=== PATIENT | female | born 1990 | race Caucasian/White ===

== ENCOUNTER 2016-10-31 15:18 | Emergency (ER) | payer OTHER ==
[~2016-10-31] VITALS: Ht 160 cm; Wt 86.4 kg
[2016-10-31 15:24] VITALS: BP 126/83; PULSE 117; RESP 16; TEMP 99; O2SAT 96
[2016-10-31] MEDS ORDERED: SODIUM CHLOR 0.9% 1000 ML INJ 1,000 ML IV SCH (15:37)
--- NOTE | 2016-10-31 15:42 | PD ---
HPI Chief Complaint: Dizziness Time Seen by Provider: 15:36 Travel History International Travel<30 days: No Contact w/Intl Traveler<30days: No Traveled to known affect area: No History of Present Illness HPI Healthy 26-year-old female here with complaint of nausea vomiting diarrhea and dizziness. Patient states that she went to a fair yesterday where she ate pulled pork. At approximately midnight she began having nausea and vomiting which was intractable until approximately 7 AM. Since, the vomiting has resolved and she has had associated diarrhea. Mild diffuse abdominal cramping. No significant pain. Patient notes lightheadedness, presyncopal symptoms. PFSH Past Medical History Medical History: Denies Significant Hx ?: Not LMP: 10/30/16 Past Surgical History Tonsillectomy: Yes Social History Alcohol Use: No Tobacco Use: No Substance Use: No Allergies-Medications (Allergen,Severity, Reaction): Coded Allergies: No Known Allergies (Verified , 10/31/16) Reported Meds & Prescriptions Reported Meds & Active Scripts Active Review of Systems Except as stated in HPI: all other systems reviewed are Neg Physical Exam Narrative GENERAL: Well-appearing female in no acute distress SKIN: Warm and dry. HEAD: Normocephalic. EYES: No scleral icterus. No injection or drainage. ENT: Mucous membranes pink and moist. NECK: Supple CARDIOVASCULAR: Tachycardic with heart rates in the 110s, regular rhythm. No murmur appreciated. RESPIRATORY: No accessory muscle use. Clear to auscultation. Breath sounds equal bilaterally. GASTROINTESTINAL: Abdomen soft, non-tender, nondistended. MUSCULOSKELETAL: Normal gait NEUROLOGICAL: Awake and alert. Normal speech. PSYCHIATRIC: Appropriate mood and affect; insight and judgment normal. Data Data Last Documented VS Vital Signs Date Time Temp Pulse Resp B/P Pulse Ox O2 Delivery O2 Flow Rate FiO2 10/31/16 15:45 97 Room Air 10/31/16 15:24 99.0 117 16 126/83 Orders Complete Blood Count With Diff (10/31/16 15:37) Comprehensive Metabolic Panel (10/31/16 15:37) Lipase (10/31/16 15:37) Iv Access Insert/Monitor (10/31/16 15:37) Ecg Monitoring (10/31/16 15:37) Oximetry (10/31/16 15:37) Ondansetron Inj (Zofran Inj) (10/31/16 15:45) Sodium Chlor 0.9% 1000 Ml Inj (Ns 1000 M (10/31/16 15:37) Sodium Chloride 0.9% Flush (Ns Flush) (10/31/16 15:45) Electrocardiogram (10/31/16 15:37) Ed Urine Pregnancytest Poc (10/31/16 15:40) MDM Medical Decision Making Medical Screen Exam Complete: Yes Emergency Medical Condition: Yes Medical Record Reviewed: Yes Differential Diagnosis 26-year-old female here with complaint of nausea vomiting diarrhea since midnight with lightheadedness and presyncope. Differential includes food poisoning, gastritis, gastroenteritis, pancreatitis, hepatobiliary pathology, symptomatic anemia, electrolyte abnormality, arrhythmia, , and less likely peritoneal pathology given benign abdominal examination. Narrative Course Patient placed on monitor, IV established and blood obtained. Given 1 L normal saline bolus, 4 mg Zofran. Twelve-lead EKG showed sinus tachycardia without notable ST abnormalities, normal intervals. CBC, CMP, lipase and urine test were ordered. Results remain pending at the time this dictation. Patient signed out to oncoming provider waiting results of same for hopeful disposition home. Lizet Bahena MD Oct 31, 2016 15:42
[2016-10-31 15:45] VITALS: O2SAT 97
[2016-10-31] MEDS ORDERED: SODIUM CHLORIDE 0.9% FLUSH 5 ML FLUSH IVF PRN (15:45)
[2016-10-31] MEDS ORDERED: ONDANSETRON HCL 4 MG/2 ML VIAL IVP ONE (15:45)
[2016-10-31 16:20] LABS: AUTOMATED NEUTROPHIL # 10.7 TH/MM3 (1.8-7.7); BASOPHIL # 0.1 TH/MM3 (0-0.2); BASOPHIL % 1.2 % (0.0-2.0); EOSINOPHIL % 0.1 % (0.0-4.0); HEMO FLAGS DIFF FINAL; LYMPH % 6.2 % (9.0-44.0); LYMPHOCYTE # 0.7 TH/MM3 (1.0-4.8); MEAN CELL VOLUME 84.9 FL (80.0-100.0); MEAN CORPUSCULAR HEMOGLOBIN 28.6 PG (27.0-34.0); MEAN CORPUSCULAR HGB CONC 33.7 % (32.0-36.0); MONO % 3.5 % (0.0-8.0); PLATELET COUNT 280 TH/MM3 (150-450); RED BLOOD COUNT 4.96 MIL/MM3 (4.00-5.30); RED CELL DISTRIBUTION WIDTH 11.8 % (11.6-17.2); WHITE BLOOD COUNT 11.9 TH/MM3 (4.0-11.0)
[2016-10-31 16:28] LABS: CHLORIDE 107 MEQ/L (98-107); POTASSIUM 3.7 MEQ/L (3.5-5.1); SODIUM (NA) 141 MEQ/L (136-145)
[2016-10-31 16:32] LABS: ANION GAP 7 MEQ/L (5-15); BICARBONATE 27.4 MEQ/L (21.0-32.0); BLOOD UREA NITROGEN 12 MG/DL (7-18)
[2016-10-31 16:35] LABS: ALT (GPT) 32 U/L (10-53); AST (GOT) 16 U/L (15-37); GLOMERULAR FILTRATION RATE 103 ML/MIN (>89)
[2016-10-31 16:36] LABS: TOTAL BILIRUBIN ADULT 0.6 MG/DL (0.2-1.0)
[2016-10-31 16:38] LABS: ALKALINE PHOSPHATASE 73 U/L (45-117)
[2016-10-31] MEDS ORDERED: KETOROLAC TROMETHAMINE 30 MG/ML (IVP) VIAL IV PUSH ONE (17:15)
[2016-10-31] MEDS ORDERED: SODIUM CHLOR 0.9% 1000 ML INJ 1,000 ML IV ONE (17:15)
[2016-10-31] MEDS ORDERED: ZOFR4TAB3 SL (17:42)
--- NOTE | 2016-10-31 17:49 | PD ---
Physical Exam Date Seen by Provider: Oct 31, 2016 Time Seen by Provider: 17:47 Narrative 26-year-old female had presented with complaint of vomiting and diarrhea tonight started after that. Her lab work has been normal. She has been given IV fluids. She is complaining of some headache. Her neck is supple pupils round. She is given some Toradol with improvement. She is stable for discharge she'll be released with prescription for Zofran Data Data Last Documented VS Vital Signs Date Time Temp Pulse Resp B/P Pulse Ox O2 Delivery O2 Flow Rate FiO2 10/31/16 15:45 97 Room Air 10/31/16 15:24 99.0 117 16 126/83 Orders Complete Blood Count With Diff (10/31/16 15:37) Comprehensive Metabolic Panel (10/31/16 15:37) Lipase (10/31/16 15:37) Iv Access Insert/Monitor (10/31/16 15:37) Ecg Monitoring (10/31/16 15:37) Oximetry (10/31/16 15:37) Ondansetron Inj (Zofran Inj) (10/31/16 15:45) Sodium Chlor 0.9% 1000 Ml Inj (Ns 1000 M (10/31/16 15:37) Sodium Chloride 0.9% Flush (Ns Flush) (10/31/16 15:45) Electrocardiogram (10/31/16 15:37) Ed Urine Pregnancytest Poc (10/31/16 15:40) Sodium Chlor 0.9% 1000 Ml Inj (Ns 1000 M (10/31/16 17:15) Ketorolac Inj (Toradol Inj) (10/31/16 17:15) Labs Laboratory Tests Test 10/31/16 16:09 White Blood Count 11.9 TH/MM3 Red Blood Count 4.96 MIL/MM3 Hemoglobin 14.2 GM/DL Hematocrit 42.0 % Mean Corpuscular Volume 84.9 FL Mean Corpuscular Hemoglobin 28.6 PG Mean Corpuscular Hemoglobin 33.7 % Concent Red Cell Distribution Width 11.8 % Platelet Count 280 TH/MM3 Mean Platelet Volume 9.4 FL Neutrophils (%) (Auto) 89.0 % Lymphocytes (%) (Auto) 6.2 % Monocytes (%) (Auto) 3.5 % Eosinophils (%) (Auto) 0.1 % Basophils (%) (Auto) 1.2 % Neutrophils # (Auto) 10.7 TH/MM3 Lymphocytes # (Auto) 0.7 TH/MM3 Monocytes # (Auto) 0.4 TH/MM3 Eosinophils # (Auto) 0.0 TH/MM3 Basophils # (Auto) 0.1 TH/MM3 CBC Comment DIFF FINAL Differential Comment Sodium Level 141 MEQ/L Potassium Level 3.7 MEQ/L Chloride Level 107 MEQ/L Carbon Dioxide Level 27.4 MEQ/L Anion Gap 7 MEQ/L Blood Urea Nitrogen 12 MG/DL Creatinine 0.70 MG/DL Estimat Glomerular Filtration 103 ML/MIN Rate Random Glucose 90 MG/DL Calcium Level 8.4 MG/DL Total Bilirubin 0.6 MG/DL Aspartate Amino Transf 16 U/L (AST/SGOT) Alanine Aminotransferase 32 U/L (ALT/SGPT) Alkaline Phosphatase 73 U/L Total Protein 7.2 GM/DL Albumin 3.5 GM/DL Lipase 97 U/L [facility] Medical Record Reviewed: No Supervised Visit with [facility]ORCAS: No Differential Diagnosis Differential includes gastroenteritis, food poisoning, dehydration Narrative Course The patient has been given symptomatic treatment with improvement. She is stable for discharge Diagnosis Primary Impression: Gastroenteritis Scripts Ondansetron Odt (Zofran Odt)4 Mg Tab4 Mg SL Q6HR PRN (Nausea/Vomiting) #7 TAB Ref 0 Prov:Kenny Faith MD 10/31/16 Disposition: 01 DISCHARGE HOME Condition: Stable Kenny Faith MD Oct 31, 2016 17:49
[2016-10-31 18:10] VITALS: RESP 18
[2016-10-31 18:28] VITALS: BP 122/84
--- NOTE | 2016-11-01 06:16 | EKG ---
Date Performed: 10/31/2016 Time Performed: 15:43:22 PTAGE: 26 years EKG: Sinus tachycardia Normal ECG except for rate NO PREVIOUS TRACING DOCTOR: Ranjith Smith Interpretating Date/Time 11/01/2016 06:14:36
== END 2016-10-31 18:34 | disposition home or self-care (01) ==
LOC: PHED 15:18
DX: K52.9 Noninfective gastroenteritis and colitis, unspecified (principal)
CPT/HCPCS: 80053; 83690; 84703; 85025; 93005; 96361; 96374; 96375; 99284; J1885; J2405; J7030